=== PATIENT | male | born 1955 | race Caucasian/White ===

== ENCOUNTER → 2017-03-20 | Outpatient (CLI) | payer OTHER | LOC: MHCPAIN 07:57 | DX: G89.29 Other chronic pain (principal); M47.27 Other spondylosis with radiculopathy, lumbosacral region | CPT/HCPCS: G0463 ==

== ENCOUNTER → 2017-05-24 | Outpatient (CLI) | payer OTHER | LOC: MHCPAIN 14:02 | DX: G89.29 Other chronic pain (principal); M47.817 Spondylosis without myelopathy or radiculopathy, lumbosacral region; M53.3 Sacrococcygeal disorders, not elsewhere classified | CPT/HCPCS: G0463 ==

== ENCOUNTER → 2017-05-25 | Outpatient (CLI) | payer OTHER | LOC: MHCPAIN 11:55 | DX: M47.817 Spondylosis without myelopathy or radiculopathy, lumbosacral region (principal) ==

== ENCOUNTER → 2017-05-29 | Outpatient (CLI) | payer OTHER | LOC: MHCPAIN 13:20 | DX: G89.29 Other chronic pain (principal); M47.817 Spondylosis without myelopathy or radiculopathy, lumbosacral region; M54.16 Radiculopathy, lumbar region; M53.3 Sacrococcygeal disorders, not elsewhere classified; M47.814 Spondylosis without myelopathy or radiculopathy, thoracic region | CPT/HCPCS: G0463 ==

== ENCOUNTER → 2017-06-22 | Outpatient (CLI) | payer OTHER | LOC: MHCPAIN 14:45 | DX: M47.817 Spondylosis without myelopathy or radiculopathy, lumbosacral region (principal) ==

== ENCOUNTER → 2017-06-26 | Outpatient (CLI) | payer OTHER | LOC: MHCPAIN 15:00 | DX: G89.29 Other chronic pain (principal); M47.817 Spondylosis without myelopathy or radiculopathy, lumbosacral region; M53.3 Sacrococcygeal disorders, not elsewhere classified | CPT/HCPCS: G0463 ==